=== PATIENT | female | born 1980 | race Caucasian/White ===

== ENCOUNTER 2017-04-14 08:05 | Emergency (ER) | payer BC ==
[~2017-04-14] VITALS: Ht 162.6 cm; Wt 119.3 kg
[2017-04-14 08:55] VITALS: BP 128/104
== END 2017-04-14 08:55 | disposition home or self-care (01) ==
LOC: ED 08:05
DX: J45.909 Unspecified asthma, uncomplicated (principal); E78.00 Pure hypercholesterolemia, unspecified; I10 Essential (primary) hypertension; E66.9 Obesity, unspecified; M79.7 Fibromyalgia